=== PATIENT | male | born 1985 | race Caucasian/White ===

== ENCOUNTER → 2021-04-05 | Outpatient (CLI) | payer BC ==
[2021-04-05 08:36] LABS: PARTIAL THROMBOPLASTIN TIME 29.1 sec (23.4-31.0); PROTHROMBIN TIME 10.7 sec (9.6-11.0)
[2021-04-05 08:53] LABS: BASOPHILS % 0.5 % (0.0-2.0); EOSINOPHILS % 1.3 % (0.0-5.0); HEMATOCRIT. 41.9 % (42.0-52.0); HEMOGLOBIN. 14.7 g/dL (14.0-18.0); LYMPHOCYTES % 29.8 % (20.0-50.0); MEAN CORPUSCULAR HEMOGLOBIN 30.9 pg (28.0-32.0); MEAN CORPUSCULAR VOLUME 88.1 fL (80.0-94.0); MEAN PLATELET VOLUME 10.3 fl (7.4-10.4); MONOCYTES % 8.3 % (2.0-8.0); NEUTROPHILS % 60.1 % (40.0-76.0); PLATELET 207 x1000/uL (130-400); RED BLOOD CELL COUNT 4.75 mill/uL (4.7-6.1); RED CELL DISTRIBUTION WIDTH 13.2 % (11.6-14.6)
== END | disposition home or self-care (01) ==
LOC: LAB 07:47
PROVIDERS: ATTEND Psychiatry & Neurology Neurology
DX: R51.9 Headache, unspecified (principal); Z20.822 Contact with and (suspected) exposure to COVID-19
CPT/HCPCS: 36415; 85025; 87426

== ENCOUNTER → 2021-04-06 | Day surgery (SDC) | payer BC ==
[~2021-04-06] VITALS: Ht 198.1 cm; Wt 163.3 kg
[~2021-04-06] MED LIST: LIDOCAINE HCL 1% 20ML VIAL (Pyxis) INJ ONE
[2021-04-06 11:07] LABS: GLUCOSE CSF 58 mg/dL (41-75)
== END | disposition home or self-care (01) ==
LOC: ANGIO 08:26
PROVIDERS: ATTEND Psychiatry & Neurology Neurology
DX: R51.9 Headache, unspecified (principal); Z79.899 Other long term (current) drug therapy; Z88.0 Allergy status to penicillin
CPT/HCPCS: 62328; 82945; 84157; 87070; J3490

== ENCOUNTER 2021-04-10 10:17 | Emergency (ER) | payer BC ==
[~2021-04-10] VITALS: Ht 198.1 cm; Wt 160.0 kg
[2021-04-10] MEDS ORDERED: SODIUM CHLORIDE 0.9% 1,000 ML IV ONE (10:45)
[2021-04-10 12:45] VITALS: BP 135/62
== END 2021-04-10 13:02 | disposition home or self-care (01) ==
LOC: ER 10:17
DX: R51.9 Headache, unspecified (principal); R11.0 Nausea; Z98.890 Other specified postprocedural states; Z88.0 Allergy status to penicillin
CPT/HCPCS: 99281; J7030